=== PATIENT | female | born 1960 | race American Indian/Alaskan Native ===

== ENCOUNTER 2017-02-13 22:16 | Emergency (ER) | payer MEDICARE, OTHER ==
[2017-02-13 22:21] VITALS: BP 133/85; PULSE 97; RESP 16; TEMP 98; O2SAT 100
--- NOTE | 2017-02-13 23:39 | ED PDOC ---
HPI: General Adult Time Seen by Provider: 02/13/17 22:25 Chief Complaint (Nursing): Flu-like Symptoms Chief Complaint (Provider): Flu-like Symptoms History Per: Patient History/Exam Limitations: no limitations Onset/Duration Of Symptoms: Days (x4) Have you had recent travel within the past 21 days to any of the following countries: [place], [place], [place] or [place]?: No Current Symptoms Are (Timing): Still Present Additional Complaint(s): 56 year old female presents to ED with complaints of flu-like symptoms x4 days and has a past medical history of HTN, hypercholesterolemia, and osteoporosis. ( +) productive cough with clear sputum, nasal congestion, sore throat, body aches , malaise, and fatigue. (-) chest pain, SOB, vomiting or diarrhea. Patient notes that her had been experiencing similar symptoms and she had been taking care of him. Patient notes that today she felt considerably weaker and would possibly lose consciousness, prompting ED arrival. PCO: Dr. Mendoza Past Medical History Reviewed: Historical Data, Nursing Documentation, Vital Signs Vital Signs: Last Vital Signs Temp 98.0 F 02/13/17 22:19 Pulse 97 H 02/13/17 22:19 Resp 16 02/13/17 22:19 BP 133/85 02/13/17 22:19 Pulse Ox 100 02/14/17 05:19 - Medical History PMH: HTN, Hypercholesterolemia Other PMH: Osteoporosis - Family History Family History: States: Hypertension - Living Arrangements Living Arrangements: With Family - Social History Current smoker - smoking cessation education provided: No Ex-Smoker (has not smoked in the last 12 months): No - Home Medications Home Medications: Ambulatory Orders Medication Instructions Recorded Albuterol HFA [Ventolin HFA 90 1 - 2 puff IH Q4H PRN #1 bottle 02/14/17 mcg/actuation (8 g)] - Allergies Allergies/Adverse Reactions: Allergies Allergy/AdvReac Type Severity Reaction Status Date / Time strawberry Allergy RASH Verified 02/13/17 22:19 Review of Systems ROS Statement: Except As Marked, All Systems Reviewed And Found Negative Constitutional: Positive for: Weakness, Malaise, Other ((+) fatigue, body aches) ENT: Positive for: Nose Congestion, Throat Pain Cardiovascular: Negative for: Chest Pain Respiratory: Positive for: Cough, Sputum (clear). Negative for: Shortness of Breath Gastrointestinal: Negative for: Vomiting, Diarrhea Physical Exam - Reviewed Nursing Documentation Reviewed: Yes Vital Signs Reviewed: Yes - Physical Exam Appears: Positive for: Non-toxic, No Acute Distress Head Exam: Positive for: ATRAUMATIC, NORMOCEPHALIC Skin: Positive for: Warm, Dry Eye Exam: Positive for: EOMI, PERRL ENT: Positive for: Pharynx Is (clear), Other (tacky mucus membranes) Neck: Positive for: Painless ROM, Supple Cardiovascular/Chest: Positive for: Regular Rate, Rhythm. Negative for: Murmur Respiratory: Positive for: Normal Breath Sounds. Negative for: Accessory Muscle Use, Wheezing, Respiratory Distress Gastrointestinal/Abdominal: Positive for: Soft. Negative for: Tenderness Back: Positive for: Normal Inspection. Negative for: Decreased ROM Extremity: Positive for: Normal ROM. Negative for: Deformity Lymphatic: Negative for: Adenopathy Neurologic/Psych: Positive for: Alert. Negative for: Motor/Sensory Deficits - Laboratory Results Result Diagrams: 02/13/17 23:46 02/13/17 22:49 - ECG O2 Sat by Pulse Oximetry: 100 (RA) Pulse Ox Interpretation: Normal Medical Decision Making Medical Decision Makin Initial impression: respiratory infection and weakness DDx: PNA, influenza, dehydration, viral illness Initial plan: * BNP * Labs * Magnesium * Phosphorus * Trop I * CXR * BCx * Influenza A B * Rapid strep 2351 CXR: NAD Scribe Attestation: Documented by Francesca Hawthorne acting as a scribe for Kanchan Gordillo MD. Scribe Attestation: All medical record entries made by the Scribe were at my direction and personally dictated by me. I have reviewed the chart and agree that the record accurately reflects my personal performance of the history, physical exam, medical decision making, and the department course for this patient. I have also personally directed, reviewed, and agree with the discharge instructions and disposition. Disposition - Clinical Impression Clinical Impression: Viral illness - Disposition Disposition: Transfer of Care Disposition Time: 00:00 Condition: STABLE Prescriptions: Albuterol HFA [Ventolin HFA 90 mcg/actuation (8 g)] 1 - 2 puff IH Q4H PRN #1 bottle PRN Reason: Wheezing Patient Signed Over To: Tete Blanco Handoff Comments: Pending ER workup, reassessment and final ER disposition
[2017-02-13 23:55] LABS: BASO # 0.1 K/uL (0.0-0.2); BASO % 1.5 % (0.0-2.0); EOS % 0.3 % (0.0-4.0); HEMOGLOBIN 14.9 g/dL (12.0-16.0); LYMPH # 3.4 K/uL (1.0-4.3); LYMPH % 50.4 % (20.0-40.0); MEAN CELL VOLUME 88.9 fl (81.0-99.0); MEAN CORPUSCULAR HGB CONC 32.6 g/dL (33.0-37.0); MEAN PLATELET VOLUME 7.5 fl (7.2-11.7); MONO # 0.8 K/uL (0.0-0.8); MONO % 12.4 % (0.0-10.0); NEUT # 2.4 K/uL (1.8-7.0); NEUT % 35.4 % (50.0-75.0); NRBC % 0.1 % (0.0-0.0); RBC 5.13 Mil/uL (3.80-5.20); RED CELL DISTRIBUTION WIDTH 13.9 % (11.5-14.5); WHITE BLOOD COUNT 6.8 K/uL (4.8-10.8)
[2017-02-13] MEDS ORDERED: Sodium Chloride 0.9% 500 ML IV STA (23:59)
--- NOTE | 2017-02-14 00:07 | ED PDOC ---
- Laboratory Results Result Diagrams: 02/13/17 23:46 02/13/17 22:49 - ECG O2 Sat by Pulse Oximetry: 100 (RA) Medical Decision Making Medical Decision Makin Patient signed out to me from Dr. Gordillo pending labs. 0132 Labs reviewed: flu and strep test returned negative. Potassium level slightly low. CXR: NAD compared to February 09, 2009. Unchanged. Patient is stable for discharge home. Dx: viral illness pt requesting something for cough rx albuterol mdi prn Scribe Attestation: Documented by Francesca Hawthorne acting as a scribe for Tete Blanco MD. Scribe Attestation: All medical record entries made by the Scribe were at my direction and personally dictated by me. I have reviewed the chart and agree that the record accurately reflects my personal performance of the history, physical exam, medical decision making, and the department course for this patient. I have also personally directed, reviewed, and agree with the discharge instructions and disposition. Disposition Counseled Patient/Family Regarding: Studies Performed, Diagnosis, Need For Followup - Clinical Impression Clinical Impression: Viral illness - POA Present On Arrival: None - Disposition Disposition: Routine/Home Disposition Time: 01:20 Condition: IMPROVED Additional Instructions: follow up with your primary doctor in 1-2 days return to the ED with any worsening or concerning symtpoms Prescriptions: Albuterol HFA [Ventolin HFA 90 mcg/actuation (8 g)] 1 - 2 puff IH Q4H PRN #1 bottle PRN Reason: Wheezing Instructions: Viral Syndrome (ED) Forms: [employer] ([place])
[2017-02-14 00:28] LABS: ALB/GLOB RATIO 1.2 (1.0-2.1); ALBUMIN 4.5 g/dL (3.5-5.0); ALT/SGPT 49 U/L (9-52); AST/SGOT 58 U/L (14-36); BLOOD UREA NITROGEN 20 mg/dl (7-17); CALCIUM 10.2 mg/dL (8.4-10.2); GFR AFRICAN-AMERICAN > 60; GFR NON-AFRICAN AMERICAN > 60; MAGNESIUM 2.2 MG/DL (1.6-2.3)
[2017-02-14 00:36] LABS: B-TYPE NATRIURETIC PEPTIDE 12.6 pg/ml (0-900)
[2017-02-14] MEDS ORDERED: Potassium Chloride 20 mEq ER Tab PO ONE ×2 (01:31→01:58)
--- NOTE | 2017-02-14 10:45 | RAD ---
HISTORY: chills cough COMPARISON: No prior. TECHNIQUE: Chest PA and lateral FINDINGS: LUNGS: No active pulmonary disease. PLEURA: No significant pleural effusion identified. No pneumothorax apparent. CARDIOVASCULAR: Normal. OSSEOUS STRUCTURES: Thoracic spondylosis. Bilateral shoulder arthrosis. VISUALIZED UPPER ABDOMEN: Normal. OTHER FINDINGS: None. IMPRESSION: No pulmonary infiltrate . No acute pathology noted
== END 2017-02-14 02:15 | disposition home or self-care (01) ==
LOC: H.ER 22:16
DX: B34.9 Viral infection, unspecified (principal); E78.00 Pure hypercholesterolemia, unspecified; I10 Essential (primary) hypertension
CPT/HCPCS: 71046; 80053; 83735; 83880; 84100; 84484; 85025; 87040; 87070; 87430; 87804; 99282; J7040

== ENCOUNTER 2018-04-26 17:53 | Emergency (ER) | payer MEDICARE, OTHER ==
[2018-04-26 18:15] VITALS: BP 136/80; PULSE 73; RESP 18; TEMP 98; O2SAT 100
--- NOTE | 2018-04-26 19:53 | ED PDOC ---
Upper Extremity Pain/Injury Time Seen by Provider: 04/26/18 18:13 Chief Complaint (Nursing): Finger,Hand,&Wrist Chief Complaint (Provider): Bilateral hand pain History Per: Patient History/Exam Limitations: no limitations Onset/Duration Of Symptoms: Other (3 months ) Current Symptoms Are (Timing): Still Present Quality: "Pain" Additional Complaint(s): 57 year old female presents to the ED for an evaluation of bilateral hand pain onset for 3 months. She denies any injury or trauma to the hands. Patient was seen by her her PMD and prescribed Meloxicam with intermittent relief. Otherwise, she reports of occasional pain and swelling. Patient is well and denies fever, chills or any other joint swelling or pain. Past Medical History Reviewed: Historical Data, Nursing Documentation, Vital Signs Vital Signs: Last Vital Signs Temp 98.0 F 04/26/18 18:13 Pulse 73 04/26/18 18:13 Resp 18 04/26/18 18:13 BP 136/80 04/26/18 18:13 Pulse Ox 100 04/26/18 18:13 - Medical History PMH: HTN, Hypercholesterolemia - Family History Family History: States: Hypertension - Home Medications Home Medications: Ambulatory Orders Medication Instructions Recorded Albuterol HFA [Ventolin HFA 90 1 - 2 puff IH Q4H PRN #1 bottle 02/14/17 mcg/actuation (8 g)] predniSONE [predniSONE Tab] 40 mg PO DAILY #6 tab 04/26/18 - Allergies Allergies/Adverse Reactions: Allergies Allergy/AdvReac Type Severity Reaction Status Date / Time Penicillins Allergy RASH Verified 04/26/18 18:11 strawberry Allergy RASH Verified 02/13/17 22:19 Review of Systems ROS Statement: Except As Marked, All Systems Reviewed And Found Negative Constitutional: Negative for: Fever, Chills Musculoskeletal: Positive for: Hand Pain (bilateral), Other (no other joint swelling or pain ) Physical Exam - Reviewed Nursing Documentation Reviewed: Yes Vital Signs Reviewed: Yes - Physical Exam Appears: Positive for: Non-toxic, No Acute Distress Head Exam: Positive for: ATRAUMATIC, NORMAL INSPECTION, NORMOCEPHALIC Skin: Positive for: Normal Color, Warm, Dry. Negative for: Rash Extremity: Positive for: Normal ROM (full ROM of wrists and hands ), Tenderness (mild tenderness on dorsum of hands bilaterally, no tenderness over wrists ), Other (no localized swelling or tenderness over the IP joints ). Negative for: Deformity, Swelling (over wrists) Neurological/Psych: Positive for: Awake, Alert, Normal Tone, Oriented (x3) - ECG O2 Sat by Pulse Oximetry: 100 (RA) Pulse Ox Interpretation: Normal Medical Decision Making Medical Decision Making: Time: 1838 Plan: Hand 3 views [RAD] Glucose, POC, Blood XR presents no abnormalities as read by [facility]. Patient's blood sugar is 102 Given some but not complete relief with Meloxicam and normal blood sugar here, patient will be given low dosage of steroid and given referral to web designer for a need of further workup. stressed importance of glucose monitoring while on steroid. Scribe Attestation: Documented by Julia Gomez acting as a scribe for Rosanne Khan PA-C. Provider Scribe Attestation: All medical record entries made by the Scribe were at my direction and personally dictated by me. I have reviewed the chart and agree that the record accurately reflects my personal performance of the history, physical exam, medical decision making, and the department course for this patient. I have also personally directed, reviewed, and agree with the discharge instructions and disposition. Disposition - Clinical Impression Clinical Impression: Bilateral hand pain - Disposition Referrals: Silvestre Benson [Staff Provider] - Eliu Cota MD [Non-Staff] - Disposition: Routine/Home Disposition Time: 19:58 Condition: STABLE Prescriptions: predniSONE [predniSONE Tab] 40 mg PO DAILY #6 tab Instructions: Hand Pain (DC) Forms: [employer] ([employer])
--- NOTE | 2018-04-27 17:01 | RAD ---
PROCEDURE: Bilateral hand radiographs. HISTORY: hand pain COMPARISON: None. TECHNIQUE: 6 views obtained. FINDINGS: BONES: No evidence of acute displaced fracture nor dislocation. The osseous structures appear grossly intact. There is a elliptical shaped soft tissue calcification measuring approximately 12 mm x 6.8 mm within the soft tissues at the level of the proximal thenar eminence right hand possibly representing some old posttraumatic mineralization. 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 Tiny corticated density seen along the SOFT TISSUES: As above. No radiopaque foreign bodies are identified OTHER FINDINGS: None. IMPRESSION: No acute fractures. Small elliptical shaped calcification within the soft tissues at the level of the proximal thenar eminence right hand possibly representing some old posttraumatic mineralization. 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
== END 2018-04-26 19:40 | disposition home or self-care (01) ==
LOC: H.ER 17:53
DX: M79.643 Pain in unspecified hand (principal); E78.00 Pure hypercholesterolemia, unspecified; I10 Essential (primary) hypertension; Z88.0 Allergy status to penicillin